=== PATIENT | male | born 1995 | race African-American/Black ===

== ENCOUNTER 2016-11-01 15:19 | Emergency (ER) | payer BC ==
[2016-11-01 16:00] VITALS: BP 136/78
--- NOTE | 2016-11-01 16:05 | UC ---
UC General HPI - HPI Summary HPI Summary: 10 days of insomnia, erectile dysfunction, posterior headache - History of Current Complaint Chief Complaint: UCGeneralIllness Stated Complaint: HEADACHE Time Seen by Provider: 11/01/16 16:02 Hx Obtained From: Patient Onset/Duration: Gradual Onset, Lasting Days, Still Present Timing: Constant Onset Severity: Mild Current Severity: Mild Pain Intensity: 2 Pain Location at: posterior and up neck Character: throbbing Associated Signs & Symptoms: Positive: Headache - Allergy/Home Medications Allergies/Adverse Reactions: Allergies Allergy/AdvReac Type Severity Reaction Status Date / Time No Known Allergies Allergy Verified 11/01/16 16:00 Home Medications: Home Medications Acetaminophen TAB* [Tylenol TAB*] 650 mg PO Q4H PRN 11/01/16 [History Confirmed 11/01/16] PMH/Surg Hx/FS Hx/Imm Hx Previously Healthy: Yes - Surgical History Surgical History: None - Family History Known Family History: Positive: None, Cardiac Disease - Social History Occupation: Student - sr at [employer] Lives: With Family Alcohol Use: Weekly - 3 times a week greater than 4 drinks at a time Substance Use Type: None Smoking Status (MU): Never Smoked Tobacco Have You Smoked in the Last Year: No - Immunization History Most Recent Influenza Vaccination: Not the Season Review of Systems Constitutional: Negative Skin: Negative Eyes: Negative ENT: Negative Respiratory: Negative Cardiovascular: Negative Gastrointestinal: Negative Genitourinary: Negative, Other - ED Motor: Negative Neurovascular: Negative Musculoskeletal: Negative Neurological: Headache - posterio Psychological: Other - has trouble both falling asleep and staying asleep sleeps 3-5 hours pernight All Other Systems Reviewed And Are Negative: Yes Physical Exam Triage Information Reviewed: Yes Appearance: Well-Appearing, No Pain Distress, Well-Nourished Vital Signs: Initial Vital Signs Temp 98.4 F 11/01/16 15:53 Pulse 66 11/01/16 15:53 Resp 14 11/01/16 15:53 BP 136/78 11/01/16 15:53 Pulse Ox 97 11/01/16 15:53 Vital Signs Reviewed: Yes Eye Exam: Normal Eyes: Positive: Conjunctiva Clear, Other: - eomi, perrla, fundascopic exam wnl ENT Exam: Normal ENT: Positive: Normal ENT inspection, Hearing grossly normal, Pharynx normal, TMs normal. Negative: Nasal congestion, Nasal drainage, Tonsillar swelling, Tonsillar exudate, Trismus, Muffled/hoarse voice Dental Exam: Normal Neck exam: Normal Neck: Positive: Supple, Nontender, No Lymphadenopathy Respiratory Exam: Normal Respiratory: Positive: Chest non-tender, Lungs clear, Normal breath sounds, No respiratory distress, No accessory muscle use Cardiovascular Exam: Normal Cardiovascular: Positive: RRR, No Murmur, Pulses Normal, Brisk Capillary Refill Abdominal Exam: Normal Abdomen Description: Positive: Nontender, No Organomegaly, Soft. Negative: CVA Tenderness (R), CVA Tenderness (L) Bowel Sounds: Positive: Present Musculoskeletal Exam: Normal Musculoskeletal: Positive: Strength Intact, ROM Intact, No Edema, Other: - balence and gait steady Neurological Exam: Normal Neurological: Positive: Alert, Muscle Tone Normal Psychological Exam: Normal Skin Exam: Normal Diagnostics - Laboratory Diagnostic Studies Completed/Ordered: fsbs 107 Course/Dx - Course Course Of Treatment: decrease caffiene, alcohol intact, 1-2 vistaril at hs, follow with [facility] and urology - Differential Dx - Multi-Symptom Differential Diagnoses: Metabolic Abnormality, Sepsis, Other - anxiety, headache , ED Provider Diagnoses: ED by history, tension headache Discharge - Discharge Plan Condition: Stable Disposition: HOME Prescriptions: hydrOXYzine PAMOATE CAP* [Vistaril CAP*] 25 - 50 mg PO Q8HR PRN #25 cap PRN Reason: Anxiety Patient Education Materials: Erectile Dysfunction (ED), Tension Headache (ED), Insomnia (ED) Referrals: Cash Carrasquillo MD [Medical Doctor] - 1 Week Non Staff,Doctor [Primary Care Provider] -
== END 2016-11-01 16:54 | disposition home or self-care (01) ==
LOC: UCCORT 15:19
DX: G44.209 Tension-type headache, unspecified, not intractable (principal); N52.9 Male erectile dysfunction, unspecified; G47.00 Insomnia, unspecified
CPT/HCPCS: 99212; G0463

== ENCOUNTER 2016-11-20 19:57 | Emergency (ER) | payer BC ==
[2016-11-20 20:13] VITALS: BP 137/76
--- NOTE | 2016-11-20 20:24 | UC ---
Complaint Male HPI - HPI Summary HPI Summary: The patient comes in today for: 1. He wants STD testing: Onset: He states that he was with a sexual partner (female) which was unprotected about month ago. He is not having any symptoms at this time. He states that she told him 4 days ago that she was with another partner. It is not known if she or the other partner have any symptoms. Palliative/provocative: He is not having any symptoms. Quality: No symptoms. Region: Severity: 0/10 Time: Not present. Associated symptoms: Dysuria: None. Sore or skin lesions: (-) Time was taken to explain to the patient the different STD and how to test for them. He wants GC/chlamydia, HIV and Syphilis. * - History of Current Complaint Chief Complaint: UCGeneralIllness Stated Complaint: PERSONAL Time Seen by Provider: 11/20/16 20:14 Hx Obtained From: Patient - Allergies/Home Medications Allergies/Adverse Reactions: Allergies Allergy/AdvReac Type Severity Reaction Status Date / Time No Known Allergies Allergy Verified 11/20/16 20:07 Home Medications: Home Medications NK [No Home Medications Reported] 11/20/16 [History Confirmed 11/20/16] PMH/Surg Hx/FS Hx/Imm Hx Previously Healthy: Yes Endocrine History Of: Denies: Diabetes, Thyroid Disease, Hyperthyroidism, Hypothyroidism, Dyslipidemia Cardiovascular History Of: Denies: Cardiac Disorders, Hypertension, Pacemaker/ICD, Myocardial Infarction , Congestive Heart Failure, Atrial Fibrillation, Deep Vein Thrombosis, Bleeding Disorders Respiratory History Of: Denies: COPD, Asthma, Bronchitis, Pneumonia, Pulmonary Embolism GI/ History Of: Denies: Gastroesophageal Reflux, Ulcer, Gastrointestinal Bleed, Gall Bladder Disease, Kidney Stones, Diverticulitis, Renal Disease, Urosepsis Neurological History Of: Denies: TIA, CVA, Dementia, Seizures, Migraine Psychological History Of: Denies: Anxiety, Depression, Bipolar Disorder, Schizophrenia, Post Traumatic Stress Disorder Cancer History Of: Denies: Lung Cancer, Colorectal Cancer, Breast Cancer, Prostate Cancer, Cervical Cancer Other History Of: Negative For: HIV, Hepatitis B, Hepatitis C, Anticoagulant Therapy - Surgical History Surgical History: None - Family History Known Family History: Positive: Cardiac Disease Negative: Hypertension, Diabetes - Social History Occupation: Student Alcohol Use: Weekly Substance Use Type: None Smoking Status (MU): Never Smoked Tobacco Have You Smoked in the Last Year: No - Immunization History Most Recent Influenza Vaccination: NONE Most Recent Tetanus Shot: UTD Review of Systems Constitutional: Negative Skin: Negative Eyes: Negative ENT: Negative Respiratory: Negative Cardiovascular: Negative Gastrointestinal: Negative Genitourinary: Negative All Other Systems Reviewed And Are Negative: Yes Physical Exam Triage Information Reviewed: Yes Appearance: Well-Appearing, No Pain Distress, Well-Nourished Vital Signs: Initial Vital Signs Temp 98 F 11/20/16 20:08 Pulse 70 11/20/16 20:08 Resp 18 11/20/16 20:08 BP 137/76 11/20/16 20:08 Pulse Ox 98 11/20/16 20:08 Vital Signs Reviewed: Yes Eyes: Positive: Conjunctiva Clear. Negative: Discharge ENT: Positive: Hearing grossly normal. Negative: Pharyngeal erythema, Nasal congestion, Nasal drainage, TM bulging, TM dull, TM red, Tonsillar swelling, Tonsillar exudate Dental: Negative: Gross Decay/Caries @, Dental Fracture @ Neck: Positive: Supple, Nontender, No Lymphadenopathy. Negative: Nuchal Rigidity Respiratory: Positive: Lungs clear, No respiratory distress, No accessory muscle use. Negative: Crackles, Rhonchi, Wheezing Cardiovascular: Positive: RRR, No Murmur Abdomen Description: Positive: Nontender, No Organomegaly, Soft. Negative: Distended, Guarding Musculoskeletal: Positive: Strength Intact, ROM Intact, No Edema Neurological: Positive: Alert, Muscle Tone Normal Psychological: Positive: Age Appropriate Behavior, Consolable Skin: Negative: rashes, breakdown UC Physical Exam Vital Signs On Initial Exam: Initial Vitals Temp Pulse Resp BP Pulse Ox 98 F 70 18 137/76 98 11/20/16 20:08 11/20/16 20:08 11/20/16 20:08 11/20/16 20:08 11/20/16 20:08 - Genitalia Exam Male Genitalia: Other - : Inguinal area: No tenderness, or enlarged lymph nodes Penis: Circumcised. No urethral discharge even with milking. No masses or skin lesions or tenderness. Scrotum: NO lesions, or masses of the testes. No epidymal tenderness or masses Complaint Male Course/Dx - Course Course Of Treatment: Patient was told of the possible STD testing that can be done. He only wanted what was ordered. - Differential Dx/Diagnosis Provider Diagnoses: STD exposure (possible) Discharge - Discharge Plan Condition: Stable Disposition: HOME Patient Education Materials: Safe Sex (ED) Referrals: Non Staff,Doctor [Primary Care Provider] - If Needed (Please see your primary care provider as needed. If you have any problems, be seen again at that time.)
[2016-11-21 13:33] LABS: Syphilis Index < 0.1 Index
== END 2016-11-20 20:50 | disposition home or self-care (01) ==
LOC: UCCORT 19:57
DX: Z11.3 Encounter for screening for infections with a predominantly sexual mode of transmission (principal); Z11.4 Encounter for screening for human immunodeficiency virus [HIV]
CPT/HCPCS: 36415; 86592; 86703; 87491; 87591; 99211; G0463